=== PATIENT | female | born 1990 | race Caucasian/White ===

== ENCOUNTER → 2021-07-13 | Outpatient (CLI) | payer OTHER | LOC: KOH-I 12:33 | DX: Z01.811 Encounter for preprocedural respiratory examination (principal); J93.9 Pneumothorax, unspecified | CPT/HCPCS: 71250 ==

== ENCOUNTER → 2021-10-12 | Outpatient (CLI) | payer OTHER | LOC: EXRD 08:47 | DX: Z00.00 Encounter for general adult medical examination without abnormal findings (principal) | CPT/HCPCS: 71046 ==